=== PATIENT | male | born 2005 | race Caucasian/White ===

== ENCOUNTER → 2024-08-03 14:37 | Outpatient (BNVA) | payer BC, SELFPAY | PROVIDERS: Family Provider Nurse Practitioner; PCP Family Medicine; Visit Provider Nurse Practitioner Family | DX: S49.92XA Unspecified injury of left shoulder and upper arm, initial encounter (principal); X58.XXXA Exposure to other specified factors, initial encounter | CPT/HCPCS: 73030 ==

== ENCOUNTER → 2025-07-03 08:36 | Outpatient (BNVA) | payer BC, SELFPAY | PROVIDERS: Family Provider Nurse Practitioner Family; PCP Nurse Practitioner Family; Visit Provider Nurse Practitioner Family | DX: E55.9 Vitamin D deficiency, unspecified (principal); Z79.899 Other long term (current) drug therapy; Z13.6 Encounter for screening for cardiovascular disorders; J02.9 Acute pharyngitis, unspecified; M10.9 Gout, unspecified; M79.89 Other specified soft tissue disorders | CPT/HCPCS: 73630; 80053; 80061; 81003; 82306; 83036; 84443; 84550; 85025; 87880 ==